=== PATIENT | female | born 1950 | race Caucasian/White ===

== ENCOUNTER 2023-05-06 09:48 | Outpatient (OUT) | payer MEDICARE, SELFPAY ==
--- NOTE | 2023-05-06 09:51 | VEIN_ITS ---
Patient Name: MATT JIMENEZ MR#: [id number] : 1950 Exam Date: 05/06/2023 Ordering Doctor: DR WILLIAM HEART M.D. RADIOLOGY REPORT PROCEDURE: [facility] - OFFICE VISIT FOLLOW UP COMPARISON: None. PROGRESS NOTES: Patient reports mildly bulging lower extremity veins which have been chronic, mild tenderness. No edema or recent change. Physical exam demonstrates several superficial varicosities bilaterally, left greater than right, partially exaggerated due to lack of subcutaneous fat. Review of the ultrasound performed the same day demonstrates mild dilation of the left anterior accessory saphenous vein, but this is stable and still falls below criteria. No new abnormally dilated superficial varicosities or significant reflux. The patient expressed a desire not proceed with any treatment at this time since findings are stable VEIN/ Facility EST [facility] IMPRESSION: 1. Stable mildly dilated left anterior accessory saphenous vein. No new findings. PLAN: 1. No treatment is recommended at this time. Patient will follow-up with us in the future as needed. Nurse notes, history and physical were reviewed and confirmed, see attached forms. The nurse was present throughout the physical exam and consultation Dictated by: Jomar Go M.D. on 05/06/2023 at 12:56 Approved by: Jomar Go M.D. on 05/06/2023 at 13:01
--- NOTE | 2023-05-06 10:19 | VEIN_ITS ---
Patient Name: MATT JIMENEZ MR#: [id number] : 1950 Exam Date: 05/06/2023 Ordering Doctor: DR WILLIAM HEART M.D. RADIOLOGY REPORT PROCEDURE: VC EXT VENOUS LT LIMITED COMPARISON: None. INDICATIONS: I83.813 Painful varicose veins of bilat lower extremities TECHNIQUE: Lower extremity ruggiero scale and Duplex Doppler evaluation of the deep venous system from the inguinal ligament through the calf veins. FINDINGS: REGION: Left lower extremity. THROMBI: Negative for DVT. AASV is visualized measuring 5.3mm at junction and 5.3mm at proximal junction with the patient in the standing position. COMPRESSIBILITY: Normal compressibility. FLOW: Normal waveform and antegrade flow between 5 and 20 cm/s. OTHER: CONCLUSION: 1. Mildly dilated left anterior accessory saphenous vein, but stable and just below criteria for treatment. Dictated by: Jomar Go M.D. on 05/06/2023 at 12:53 Approved by: Jomar Go M.D. on 05/06/2023 at 12:56
== END 2023-05-06 09:49 | disposition home or self-care (01) ==
LOC: VC 09:49
PROVIDERS: PCP Radiology Diagnostic Radiology; Visit Provider Radiology Diagnostic Radiology
DX: I83.813 Varicose veins of bilateral lower extremities with pain (principal)
CPT/HCPCS: 93971; G0463